=== PATIENT | male | born 1970 | race Caucasian/White ===

== ENCOUNTER → 2020-12-21 | Outpatient (CLI) | payer OTHER ==
[~2020-12-21] MED LIST: BUSPAR 10MG10 MG PO; ELIQUIS2.5 MG PO; HYDROCODON-ACE1 EAC2 PO; HYDROCODON-ACE1 EAC6 PO; HYDROXYZINE HCL50 MG PO; IPRAT-ALBUT 0.5-3 ML INH; LEVOTHYROXINE25 MC1 PO; LISINOPRIL5 MG PO; PAROXETINE PO; PERCOCET 10-321 EACH PO; PHENTERMINE H37.5 MG PO; ROPINIROLE HCL2 MG PO; SINGULAIR10 MG PO; SYMBICORT 16010.2 GM INH; VENTOLIN HFA 66.7 GM PO; ZANAFLEX2 MG PO
[2020-12-21 12:46] LABS: HEMOGLOBIN 16.3 gm/dl (14.0-17.5); RED BLOOD COUNT 5.35 M/UL (4.20-5.50); WHITE BLOOD COUNT 11.8 K/UL (4.5-11.0)
[2020-12-21 13:07] LABS: BUN/CREATININE RATIO 14 (0-10)
== END ==
LOC: OPSV2 11:21 → EDSTATUS 12:00
PROVIDERS: Orthopaedic Surgery
DX: Z01.818 Encounter for other preprocedural examination (principal); M16.11 Unilateral primary osteoarthritis, right hip; R94.31 Abnormal electrocardiogram [ECG] [EKG]
CPT/HCPCS: 36415; 80048; 85025; 87081; 93005

== ENCOUNTER → 2021-01-16 | Outpatient (CLI) | payer OTHER ==
[~2021-01-16] VITALS: Ht 170.2 cm; Wt 140.6 kg
[2021-01-16 14:08] LABS: HEMOGLOBIN 14.2 gm/dl (14.0-17.5); RED BLOOD COUNT 4.76 M/UL (4.20-5.50); WHITE BLOOD COUNT 9.5 K/UL (4.5-11.0)
[2021-01-16 14:21] LABS: BUN/CREATININE RATIO 16 (0-10)
== END ==
LOC: EDSTATUS 12:00 → OPSV2 12:00
PROVIDERS: Orthopaedic Surgery
DX: Z01.812 Encounter for preprocedural laboratory examination (principal); M16.11 Unilateral primary osteoarthritis, right hip
CPT/HCPCS: 36415; 80048; 85025

== ENCOUNTER 2021-01-19 09:04 | Day surgery (SDC) | payer OTHER ==
[~2021-01-19] VITALS: Ht 170.2 cm; Wt 136.1 kg
[~2021-01-19 09:04] MED LIST changes: -ELIQUIS2.5 MG PO; -PERCOCET 10-321 EACH PO
[2021-01-19 10:36] LABS: BUN/CREATININE RATIO 13 (0-10)
[2021-01-19] MEDS ORDERED: ELIQUIS2.5 MG PO (14:09)
[2021-01-19] MEDS ORDERED: PERCOCET 10-321 EACH PO (14:09)
[2021-01-20 04:52] LABS: RED BLOOD COUNT 3.97 M/UL (4.20-5.50); WHITE BLOOD COUNT 16.6 K/UL (4.5-11.0)
[2021-01-20 04:53] LABS: HEMOGLOBIN 11.8 gm/dl (14.0-17.5)
[2021-01-20 05:17] LABS: BUN/CREATININE RATIO 16 (0-10)
--- NOTE | 2021-01-20 10:16 | NUR ---
BP IS 77/44, HOSPITALIST CONSULTED WAS CONTACTED WITH NO SUCCESS. BLOOD GLUCOSE 124 O2 SATURATION 94% ON O2@2L NC. PULSE 102. PT IS SLEEPY, BUT ALERT AND ORIENTED X3 AND IN NO DISTRESS.WCTM
[2021-01-21 04:13] LABS: HEMOGLOBIN 10.7 gm/dl (14.0-17.5); RED BLOOD COUNT 3.62 M/UL (4.20-5.50); WHITE BLOOD COUNT 13.4 K/UL (4.5-11.0)
[2021-01-21 04:32] LABS: BUN/CREATININE RATIO 25 (0-10)
== END 2021-01-21 13:13 | disposition home health service (06) ==
LOC: OR 09:04 → EDSTATUS 15:00 → M/S 20:16 → OR 01-21 13:13
PROVIDERS: Orthopaedic Surgery
PROC: 3E0T3BZ Introduction of Anesthetic Agent into Peripheral Nerves and Plexi, Percutaneous Approach (ICD-10-PCS; 2021-01-19)
PROC: 0SR90J9 Replacement of Right Hip Joint with Synthetic Substitute, Cemented, Open Approach (ICD-10-PCS; principal; 2021-01-19 15:00)
DX: M16.11 Unilateral primary osteoarthritis, right hip (principal); G89.18 Other acute postprocedural pain; J44.9 Chronic obstructive pulmonary disease, unspecified; I10 Essential (primary) hypertension; K21.9 Gastro-esophageal reflux disease without esophagitis; F41.9 Anxiety disorder, unspecified; F32.9 Major depressive disorder, single episode, unspecified; G62.9 Polyneuropathy, unspecified; E03.9 Hypothyroidism, unspecified; E66.01 Morbid (severe) obesity due to excess calories; Z68.45 Body mass index [BMI] 70 or greater, adult; Z96.642 Presence of left artificial hip joint; Z87.891 Personal history of nicotine dependence; Z79.891 Long term (current) use of opiate analgesic; Z79.899 Other long term (current) drug therapy; Z91.012 Allergy to eggs
CPT/HCPCS: 36415; 73501; 73502; 76000; 80048; 82962; 85027; 86850; 86900; 86901; 86920; 94640; 94664; 94760; 97116; 97116-GP-CQ; 97162; 97166; 97530; C1776; J0690; J1100; J1644; J1885; J2001; J2250; J2270; J2405; J2704; J2710; J2795; J3010; J3370; J7050; J7120; P9016; P9045; Q0177